=== PATIENT | female | born 1960 | race Caucasian/White ===

== ENCOUNTER 2018-11-22 08:45 | Day surgery (SDC) | payer OTHER ==
[~2018-11-22] VITALS: Ht 172.7 cm; Wt 129.3 kg
--- NOTE | ~2018-11-22 | OR ---
[facility] [address] [place], [place] [address] Draft DATE OF OPERATION: 11/22/2018 SURGEON: Obey Vo MD PREOPERATIVE DIAGNOSES: 1. A 10 x 15 mm right ureteropelvic junction calculus. 2. A 5 mm right lower pole renal calculus. POSTOPERATIVE DIAGNOSES: 1. A 10 x 15 mm right ureteropelvic junction calculus. 2. A 5 mm right lower pole renal calculus. 3. Possible uric acid nephrolithiasis. NAMES OF PROCEDURES: 1. Diagnostic cystoscopy with right retrograde pyelogram. 2. Right flexible nephroscopy with laser lithotripsy and basket extraction of stone fragments. 3. Insertion of right ureteral stent. ANESTHESIA: General. ESTIMATED BLOOD LOSS: Minimal. COMPLICATIONS: None. SPECIMENS: Fragments of right ureteropelvic junction calculus sent to the lab for stone analysis. DRAINS: A 6 x 26 cm double-J ureteral stent inserted into the right ureter. INDICATIONS FOR PROCEDURE: Ms. Ramires is very pleasant 58-year-old obese female with no previous history of nephrolithiasis, who recently presented to my clinic upon referral from the emergency department. She had presented there about a week prior with 1-day history of sudden onset right flank pain and nausea. She underwent a CAT scan, which revealed a 10 x 15 mm right ureteropelvic junction calculus, along with a 5 mm lower pole right renal PATIENT NAME: VINCE RAMIRES OPERATIVE REPORT DATE OF : 64 REPORT #: [id number] PHYSICIAN: OBEY VO MD PCP: PETE BLANCHARD MD REPORT IS CONFIDENTIAL AND NOT TO BE RELEASED WITHOUT AUTHORIZATION [facility] [address] [place], [place] [address] Draft calculus. Also noted on the CAT scan is a 7 mm lower pole left renal calculus. At that time, her urine appeared to be clear of infection. When she was seen in clinic, I sent her urine for culture which revealed 30 K of contamination. The patient was experiencing intermittent right-sided flank pain, but was denying any fevers, chills, or gross hematuria. I explained the risks and benefits of ureteroscopy to her and explained to her that the likelihood of her passing the stone was extremely low and she agreed to undergo diagnostic ureteroscopy. OPERATIVE FINDINGS: 1. On cystoscopy, there was no evidence of any suspicious masses, lesions, or stones. Bilateral ureteral orifices are in their normal anatomic location. 2. Right retrograde pyelogram was performed, which revealed a very large filling defect near her right ureteropelvic junction, consistent with her large right ureteropelvic junction calculus. I was unable to appreciate the filling defect associated with the smaller 5 mm lower pole right renal calculus. There were no other obvious calculi within the right ureter. 3. Right flexible nephroscopy revealed the presence of a very large soft stone in the right renal pelvis. This stone fragmented quite easily using a holmium laser at the 8.8 settings. A 400 micron fiber was used. The fragmentation of the stone produced a significant amount of stone debris and sediment within the right renal pelvis, making it very hard to visualize the stone fragments when it came time to extract them. Overall, majority of the stone was fairly easily fragmented. 4. I was able to extract a few pieces of stone and the stone itself appears to be possibly a uric acid stone. The patient's urinary pH on her visit with me was 5, so this is quite possible, however she denies a history of gout. At this time, I made the decision to abort additional attempts at extracting stone fragments due to lack of visibility. 5. A 6 x 26 cm double-J ureteral stent was inserted into the patient's right ureter under direct visualization with just a mild amount of difficulty. DESCRIPTION OF PROCEDURE: After informed consent was obtained, the patient was taken back to the operating room. She was transferred from the [facility] to the operating room table, where general anesthesia was induced. She was placed in the dorsal lithotomy position and her genitalia prepped and draped in a standard sterile fashion. Using a 30-degree lens on a 22.5-Sammarinese introducer, rigid cystoscope was inserted through urethra into her bladder under direct visualization. Panendoscopic views of the bladder were then obtained. Please see the findings. I turned my attention to the right ureteral orifices, where I performed a right retrograde pyelogram using a cone-tipped catheter. Please see above findings. I then inserted a Sensor wire up into the right renal pelvis under a fluoroscopic guidance. Over the wire, a 13/15 ureteral access sheath was passed rather easily under fluoroscopic guidance. I repeated a retrograde pyelogram via the sheath to PATIENT NAME: VINCE RAMIRES OPERATIVE REPORT DATE OF : 64 REPORT #: [id number] PHYSICIAN: OBEY VO MD PCP: PETE BLANCHARD MD REPORT IS CONFIDENTIAL AND NOT TO BE RELEASED WITHOUT AUTHORIZATION [address] [address] Draft confirm proper placement of the sheath. I then advanced a flexible ureteroscope through the sheath and into the right renal pelvis. I then performed a diagnostic nephroscopy. Please see above findings. There was a very large stone in the right renal pelvis that broke quite easily using a 400 micron fiber and 8.8 holmium laser settings. The active fragmentation stone produced a significant amount of debris within the pelvis, making it difficult to further visualize the stones. From what I could see, I was able to fragment a majority of the stone down to retrievable fragments. I was able to retrieve a couple of these fragments using a Zero Tip basket. However, the visualization was quite poor due to all the stone sediments within the right renal pelvis. I was able to place some fragments into the specimen cup to be sent for stone analysis. After multiple attempts at continuing to try to see these fragments well enough to extract them, I decided to abort the procedure and attempt medical management for what I suspect are uric acid stones. This will be confirmed on stone analysis postoperatively. Through the ureteroscope, I passed a Sensor wire into the right renal pelvis. Over the wire, I passed a 6 x 26 cm double-J ureteral stent into the right collecting system. Placement of the stent was confirmed on fluoroscopy with an adequate proximal coil within the right renal pelvis along with an adequate distal coil in the bladder. The patient's bladder was then drained and the cystoscope was removed. The procedure was then terminated. The patient tolerated the procedure well without any complication. She will now be transferred to the postanesthesia care unit in stable condition. DISPOSITION: I discussed the details of today's procedure with the patient's daughter and answered all of her questions. I told her daughter that the patient will be started on potassium citrate 20 mEq p.o. b.i.d. in an attempt to alkalinize her urine and hopefully to dissolve some of the stones seen in her right renal pelvis as I do suspect that they could be uric acid stones. She was also sent home with oral antibiotics and Percocet 5/325 dispensed #30 as needed for pain. She will be scheduled to return to the operating room in approximately 2 weeks, where she will undergo repeat flexible nephroscopy with laser lithotripsy and extraction of more stone fragments. Hopefully, at that time I will have better visualization once able to flush out her right renal pelvis due to the presence of a stent. As soon as I obtain the results of her stone analysis, she will be notified of this and her potassium citrate will either be continued or discontinued based on those results. MD ADRIANO Watson/STEPHANIE PATIENT NAME: VINCE RAMRIES OPERATIVE REPORT DATE OF : 64 REPORT #: [id number] PHYSICIAN: OBEY VO MD PCP: PETE BLANCHARD MD REPORT IS CONFIDENTIAL AND NOT TO BE RELEASED WITHOUT AUTHORIZATION [facility] [address] [place] [address] [place] [address] Draft /[id number] Copies: ~ PATIENT NAME: VINCE RAMIRES OPERATIVE REPORT DATE OF : 64 REPORT #: [id number] PHYSICIAN: OBEY VO MD PCP: PETE BLANCHARD MD REPORT IS CONFIDENTIAL AND NOT TO BE RELEASED WITHOUT AUTHORIZATION
[~2018-11-22 08:45] MED LIST: FLOMAX0.4 MG PO; GLUCOPHAGE500 MG PO; HYDROCHLOROTH12.5 M1 PO; KAPSPARGO SPRI100 MG PO; NORCO 10-325 T1 EACH PO; ZOFRAN4 MG SL
--- NOTE | 2018-11-22 13:01 | NUR ---
11/22/18 1301 Oralia Garber 1247 PT TO PACU AWAKE AND ALERT DENIES PAIN OR NAUSEA. O2 ON 6L VIA MASK.
--- NOTE | 2018-11-22 13:22 | NUR ---
PT ARRIVES TO DS RM 2 FROM PACU AWAKE, A&O X3. PT RESP EVEN AND UNLABORED, SATS ABOVE 94% ON RA. PT DENIES ANY PAIN OR NAUSEA. PT DAUGHTER AT BEDSIDE. SCD'S IN PLACE. PT PROVIDED ICED WATER AND CRACKERS. CALL LIGHT WITHIN REACH.
--- NOTE | 2018-11-22 14:00 | NUR ---
PT CALL LIGHT ALARMING. PT REQUESTING TO USE BATHROOM. PT TOLERATES AMBULATION WITH STAND BY ASSIST FROM RN. PT ABLE TO VOID 200 ML BLOOD TINGED URINE WITHOUT DIFFICULTY. PT REPORTS BLADDER FEELING EMPTY. PT BACK TO ROOM AND REPORTS 6/10 PAIN IN RIGHT FLANK. PT TOLERATING PO FLUIDS AND FOOD. PT MEDICATED WITH PO PAIN MEDS. SEE EMAR. PT PROVIDED WITH SOUP AND CRACKERS. CALL LIGHT WITHIN REACH
--- NOTE | 2018-11-22 14:15 | NUR ---
EATING LUNCH CONTS TO RATE PAIN 6/10 RX NOT WORKING YET. GIVE MORE TIME.
[2018-11-22] MEDS ORDERED: POTASSIUM CITR15 MEQ PO (14:53)
[2018-11-22] MEDS ORDERED: KEFLEX500 MG PO (14:53)
[2018-11-22] MEDS ORDERED: PERCOCET 5-3251 EACH PO (14:53)
--- NOTE | 2018-11-22 15:00 | NUR ---
PT REPORTS DECREASE IN PAIN LEVEL AND DENIES NAUSEA. VSS. PT RECOMMENDED BY DR. VO TO TAKE BLOOD PRESSURE AND METFORMIN WHEN SHE RETURNS HOME. PT MEETS DC CRITERIA. VOIDS WITHOUT DIFFICULTY, TOLERATES PO FLUIDS, AND FOOD AND DENIES PAIN/NAUSEA. 1510- IV DC'D WNL. DC INSTRUCTIONS WITH PRECAUTIONS PROVIDED TO PT AND DAUGHTER. PT VERBALIZES UNDERSTANDING AND DENIES FURTHER QUESTIONS. PRESCRIPTION GIVEN. PT TO RETURN TO FOR REPEAT SURGERY IN TWO WEEKS. PT TRANSPORTED IN WHEELCHAIR TO VEHICLE IN STABLE CONDITION. VEHICLE DRIVEN BY DAUGHTER.
== END 2018-11-22 15:10 | disposition home or self-care (01) ==
LOC: OPS 08:45 → DS 08:45 → OPS 10:45 → DS 12:10 → OPS 12:10
PROVIDERS: Urology
PROC: 0T768DZ Dilation of Right Ureter with Intraluminal Device, Via Natural or Artificial Opening Endoscopic (ICD-10-PCS; 2018-11-22)
PROC: BT1DZZZ Fluoroscopy of Right Kidney, Ureter and Bladder (ICD-10-PCS; 2018-11-22)
PROC: 0TC08ZZ Extirpation of Matter from Right Kidney, Via Natural or Artificial Opening Endoscopic (ICD-10-PCS; principal; 2018-11-22 10:45)
PROC: 0TC68ZZ Extirpation of Matter from Right Ureter, Via Natural or Artificial Opening Endoscopic (ICD-10-PCS; 2018-11-22 10:45)
DX: N20.2 Calculus of kidney with calculus of ureter (principal); E11.9 Type 2 diabetes mellitus without complications; I10 Essential (primary) hypertension; E66.01 Morbid (severe) obesity due to excess calories; Z79.899 Other long term (current) drug therapy; Z68.43 Body mass index [BMI] 50.0-59.9, adult; Z87.891 Personal history of nicotine dependence
CPT/HCPCS: 00910; 74420; 82365; C1769; C2617; J0696; J1100; J1885; J2250; J2405; J2704; J2765; J3010; J7120; Q9967

== ENCOUNTER 2018-12-06 06:15 | Day surgery (SDC) | payer OTHER ==
[~2018-12-06] VITALS: Ht 172.7 cm; Wt 124.7 kg
--- NOTE | ~2018-12-06 | OR ---
[facility] [address] [place], [place] [address] Draft DATE OF OPERATION: 12/06/2018 SURGEON: Obey Vo MD PREOPERATIVE DIAGNOSES: 1. 15 mm right ureteropelvic junction calculus. 2. 5 mm lower pole right renal calculus. 3. Status post right nephroscopy with laser lithotripsy of both right renal calculi. POSTOPERATIVE DIAGNOSES: 1. 15 mm right ureteropelvic junction calculus. 2. 5 mm lower pole right renal calculus. 3. Status post right nephroscopy with laser lithotripsy of both right renal calculi. PROCEDURES PERFORMED: 1. Diagnostic cystoscopy with right retrograde pyelogram. 2. Right flexible nephroscopy with basket extraction of stones. 3. Right ureteral stent exchange. ANESTHESIA: General. ESTIMATED BLOOD LOSS: Minimal. COMPLICATIONS: None. SPECIMENS: Multiple fragments of right renal calculi sent to the lab for stone analysis. DRAINS: A 6 x 26 cm double-J ureteral stent exchange into the right ureter. INDICATIONS FOR PROCEDURE: Ms Radha thomas is a very pleasant 58-year-old female who presented to my clinic earlier this month after being seen in the emergency department with acute onset of right flank pain. She underwent a CT scan which revealed a 15 mm right ureteropelvic junction calculus, along with a 5 mm lower pole right renal calculus. After discussion of the risks and benefits of the procedure, the patient elected to undergo ureteroscopic PATIENT NAME: VINCE RAMIRES OPERATIVE REPORT DATE OF : 64 REPORT #: [id number] PHYSICIAN: OBEY VO MD PCP: PETE BLANCHARD MD REPORT IS CONFIDENTIAL AND NOT TO BE RELEASED WITHOUT AUTHORIZATION [facility] [address] [place], [place] [address] Draft extraction of her of her right renal calculi. Approximately two weeks ago, she underwent the 1st stage of the procedure where the both stones were fragmented using laser correction using a holmium laser with a 270 micron fiber. She presents today to undergo this 2nd half of her procedure, where the stone burden will now be extracted using a Zero tip basket. FINDINGS: 1. On cystoscopy, there was no evidence of any suspicious masses, lesions, or stones. She does have an indwelling right ureteral stent that has already partially calcified after two weeks of placement correction two weeks after placement. 2. Right retrograde pyelogram reveals a large collections of stone fragments within the lower pole of the right kidney. There are no obvious stone fragments present in the upper mid pole of the right kidney. There is no evidence of calyceal blunting or renal pelvis dilation. 3. Flexible nephroscopy was performed and a ZeroTip basket was used to remove the multiple stone fragments within the lower pole of the right kidney. Overall, approximately 98% of the stone burden was successfully removed. The root was successfully removed years using the Zero tip basket. 4. A fresh 6 x 26 cm double-J ureteral stent was exchanged into the right ureter without difficulty. DESCRIPTION OF PROCEDURE: After informed consent was obtained, the patient was taken back to the operating room. She was transferred from the [facility] to the operating room table, where general anesthesia was induced. She was placed in the dorsal lithotomy position and her genitalia were prepped and draped in a sterile fashion. Using a 30-degree lens on a 22-1/2-[place] Korean introducer, rigid cystoscope was inserted through urethra and into her bladder under direct visualization. Panendoscopic views of the bladder were then obtained. Please see above findings. The indwelling stent was noted to be calcified as mentioned above. The stent was pulled to the level of the urethral meatus using a grasper. A Sensor wire was then inserted into the lumen of the stent and up into the right renal pelvis. Fluoroscopy confirmed adequate placement of the wire in the upper pole of the right kidney. The indwelling stent was removed fully intact. Over the wire, a 13/15 ureteral access sheath was passed into the right collecting system under fluoroscopic guidance. The sheath passed quite easily up into the right ureter. I then performed a right retrograde pyelogram via the sheath to confirm placement and to assess the patient's stone burden. Please see above findings. I then removed the inner obturator of the sheath and inserted the flexible ureteroscope through the sheath and into the right renal pelvis. A diagnostic right nephroscopy was then performed. I visualized a rather large pile of stone fragments in the lower pole of the right kidney. These stones were successfully extracted using a Zero tip basket. PATIENT NAME: VINCE RAMIRES OPERATIVE REPORT DATE OF : 64 REPORT #: [id number] PHYSICIAN: OBEY VO MD PCP: PETE BLANCHARD MD REPORT IS CONFIDENTIAL AND NOT TO BE RELEASED WITHOUT AUTHORIZATION [facility] [address] [place], [place] [address] Draft There was no additional lithotripsy required during today's procedure. Overall, approximately 98% of the stone burden was successfully retrieved using the stone basket. I repeated a retrograde pyelogram which confirmed clearance of the stone fragments from the lower pole of the right kidney. I also evaluated the other mid and upper poles of the kidney and they appeared to be free of stone fragments. Once I was satisfied that all the stone fragments had been successfully retrieved, the ureteroscope was then removed from the right collecting system. I passed a Sensor wire through the ureteral access sheath and up into the right renal pelvis. The ureteral access sheath was then removed fully intact. Over the Sensor wire, I passed a 6 x 26 double-J ureteral stent into the right collecting system. The stent passed quite easily, and once I pulled the wire, an adequate proximal coil was seen in the upper pole of the right kidney. There was also an adequate distal coil within the bladder. The patient's bladder was then drained and the cystoscope was removed. The procedure was then terminated. The patient tolerated the procedure well without any complication. She will now be transferred to the postanesthesia care unit in stable condition. DISPOSITION: I discussed the details of today's procedure with the patient's daughter and answered all of her questions. The patient will be discharged to home later today when she awakes from general anesthesia. She was given additional prescription for Percocet 5/325 one to two tablets p.o. q.8 hours p.r.n. pain, dispense #30, along with Keflex 500 mg p.o. t.i.d. for a total of 5 days. She will be scheduled to return to clinic on , December 16 at 9 a.m. to undergo cystoscopy with right ureteral stent extraction. At that time, I will also discuss with her the results of her stone analysis. In the interim, I have told her to continue her potassium citrate in case there was any element of uric acid nephrolithiasis. MD ADRIANO Watson/STEPHANIE /[id number] Copies: PATIENT NAME: VINCE RAMIRES OPERATIVE REPORT DATE OF : 64 REPORT #: [id number] PHYSICIAN: OBEY VO MD PCP: PETE BLANCHARD MD REPORT IS CONFIDENTIAL AND NOT TO BE RELEASED WITHOUT AUTHORIZATION [address] [address] Draft ~ PATIENT NAME: VINCE RAMIRES OPERATIVE REPORT DATE OF : 64 REPORT #: [id number] PHYSICIAN: OBEY VO MD PCP: PETE BLANCHARD MD REPORT IS CONFIDENTIAL AND NOT TO BE RELEASED WITHOUT AUTHORIZATION
[~2018-12-06 06:15] MED LIST changes: +KEFLEX500 MG PO; +PERCOCET 5-3251 EACH PO; +POTASSIUM CITR15 MEQ PO
--- NOTE | 2018-12-06 07:12 | NUR ---
PT'S BLOOD SUGAR 274 AT 0645 DURING PRE-OP. DIANA KAUR NOTIFIED OF THIS LEVEL AND NO NEW ORDERS GIVEN AT THIS TIME.
--- NOTE | 2018-12-06 08:25 | NUR ---
PT ALERT, ORIENTED AND SEEMS TO BE RELAXED. PT MENTIONED THAT SHE JUST HAD PROCEDURE 2 WKS AGO. PLEASANT, THANKED ME FOR COMING IN-EXTENDED A BLESSING, WILL FOLLOW NEEDED
--- NOTE | 2018-12-06 10:29 | NUR ---
12/06/18 1029 Shahrzad Floyd 1020 PT ARRIVED IN PACU SLEEPY WITH ORAL AIRWAY IN PLACE. 1023 BLOOD SUGAR 252 ON ARRIVAL. 1025 ORAL AIRWAY REMOVED. OXYGEN DECREASED TO 6L VIA MASK WITH SATS 98%.
--- NOTE | 2018-12-06 11:01 | NUR ---
PT RETURNS TO DS ROOM 3 FROM PACU ON RA. PT AWAKE AND ORIENTED. PT DENIES PAIN/NAUSEA. VSS. PACU REPORTS DECREASE IN PT'S BLOOD SURGAR TO 250. PT DRINKS WATER AND TOLERATES AND DENIES NEED FOR FOOD AT THIS TIME AND REQUESTS TO REST. CALL LIGHT WITHIN REACH. DAUGHTER AT BEDSIDE.
--- NOTE | 2018-12-06 12:00 | NUR ---
PT REQUESTS TO USE BATHROOM TO VOID. PT DANGLES AT BEDSIDE AND DENIES NAUSEA/LIGHTHEADEDNESS. PT AMBULATES WITH STAND BY ASSIST FROM THIS RN. PT ABLE TO VOID 300 ML BLOOD TINGED URINE WITHOUT DIFFICULTY. PT DENIES BLADDER FULLNESS FEELING. PT BACK TO BED. IV DC'D WNL. PT DRESSES SELF WITHOUT ASSISTANCE
--- NOTE | 2018-12-06 12:15 | NUR ---
DC INSTRUCTIONS WITH PRECAUTIONS PROVIDED TO PT. PT VERBALIZES UNDERSTANDING AND DENIES FURTHER QUESTIONS. PRESCRIPTION GIVEN WITH EDUCATION. VSS. PT TRANSPORTED IN WHEELCHAIR TO VEHICLE DRIVEN BY DAUGHTER. PT IN STBALE CONDITION AND TO FOLLOW UP WITH DR. VO IN TWO WEEKS FOR STENT REMOVAL.
== END 2018-12-06 12:15 | disposition home or self-care (01) ==
LOC: DS 06:15 → OPS 06:15 → DS 09:00 → OPS 09:00
PROVIDERS: Urology
PROC: 0T768DZ Dilation of Right Ureter with Intraluminal Device, Via Natural or Artificial Opening Endoscopic (ICD-10-PCS; 2018-12-06)
PROC: BT1DYZZ Fluoroscopy of Right Kidney, Ureter and Bladder using Other Contrast (ICD-10-PCS; 2018-12-06)
PROC: 0TC08ZZ Extirpation of Matter from Right Kidney, Via Natural or Artificial Opening Endoscopic (ICD-10-PCS; principal; 2018-12-06 09:00)
PROC: 0TP98DZ Removal of Intraluminal Device from Ureter, Via Natural or Artificial Opening Endoscopic (ICD-10-PCS; 2018-12-06 09:00)
DX: N20.2 Calculus of kidney with calculus of ureter (principal); I10 Essential (primary) hypertension; E11.9 Type 2 diabetes mellitus without complications; Z79.899 Other long term (current) drug therapy; Z79.84 Long term (current) use of oral hypoglycemic drugs; Z87.891 Personal history of nicotine dependence
CPT/HCPCS: 00918; 74420; 82365; C1769; C2617; J0696; J1100; J1885; J2704; J3010; J7120; Q9967

== ENCOUNTER 2018-12-20 09:53 | Emergency (ER) | payer SELFPAY ==
[~2018-12-20] VITALS: Ht 172.7 cm; Wt 124.7 kg
--- OUTSIDE RECORDS SUMMARY | 2018-12-20 09:56 | XMS ---
PreManage Notification: VINCE RAMIRES Security Guest Experience Representative Events No recent Security Events currently on file [facility] There are no care providers on record at this time. Courtney has no Care Guidelines for this patient. Kristi VISIT COUNT (12 MO.) 2 [facility] Smith TOTAL 2 NOTE: Visits indicate total known visits. ED/UCC VISIT TRACKING (12 MO.) 12/20/2018 09:53 WIL[facility]ERT Ji [place] TYPE: Emergency COMPLAINT: - KIDNEY ISSUES PER MD 11/12/2018 11:23 [facility] [place] TYPE: Emergency COMPLAINT: - R SIDED FLANK/ABD PAIN DIAGNOSES: - Unspecified abdominal pain - Hydronephrosis with ureteropelvic junction obstruction INPATIENT VISIT TRACKING (12 MO.) No inpatient visits to display in this time frame [email or web address]
[2018-12-20] MEDS ORDERED: LEVOFLOXACIN750 MG PO (10:13)
[2018-12-20] MEDS ORDERED: SERTRALINE HCL50 MG PO (10:14)
[2018-12-20] MEDS ORDERED: LANTUS100 UNITS/ SUB-Q (12:55)
[2018-12-20] MEDS ORDERED: DIFLUCAN200 MG PO (12:55)
== END 2018-12-20 13:09 | disposition home or self-care (01) ==
LOC: ED 09:53
DX: N28.9 Disorder of kidney and ureter, unspecified (principal); E11.65 Type 2 diabetes mellitus with hyperglycemia; B37.9 Candidiasis, unspecified; I10 Essential (primary) hypertension; Z87.891 Personal history of nicotine dependence; Z79.899 Other long term (current) drug therapy; Z79.84 Long term (current) use of oral hypoglycemic drugs
CPT/HCPCS: 80053; 81001; 85025; 96374; 99283-25; J2405; J7040

== ENCOUNTER 2023-03-19 08:55 | Day surgery (SDC) | payer BC ==
[2023-03-16 16:21] VITALS: BP 128/71
[~2023-03-19] VITALS: Ht 172.7 cm; Wt 131.8 kg
[~2023-03-19 08:55] MED LIST changes: +ALLER-TEC10 MG PO; +COZAAR50 MG PO; +DIFLUCAN200 MG PO; +GLIPIZIDE ER10 MG PO; -KAPSPARGO SPRI100 MG PO; +LANTUS100 UNITS/ SUB-Q; +LEVOFLOXACIN750 MG PO; +LIPITOR40 MG PO; +METOPROLOL SUC100 MG PO; +SERTRALINE HCL50 MG PO; +ZOLOFT50 MG PO
[2023-03-19 09:11] VITALS: BP 149/73
[2023-03-19] MEDS ORDERED: ASPIRIN REGIMEN81 MG PO (09:14)
--- NOTE | 2023-03-19 09:52 | NUR ---
0940- ENRRIQUE DALY CRNA NOTIFIED OF PT'S BLOOD SUGAR BEING 330 TODAY. NEW ORDERS RECEIVED. 0926- DALTON MEYER, CERTIFIED FITTER IN MASTECTOMY INTO THE ROOM TO TALK WITH THE PT.
--- NOTE | 2023-03-19 10:08 | NUR ---
REALIZED THE PT'S IV WAS STARTED ON THE OPERATIVE SIDE. PT NOTIFIED OF THIS AND NEEDING TO START A NEW IV ON THE NON-OPERATIVE SIDE. APOLOGIZED TO PT. PT WAS PLEASANT ABOUT THE ACCIDENTAL INSERTION ON THE OPERATIVE SIDE.
--- NOTE | 2023-03-19 10:18 | NUR ---
PT SALINE LOCKED AND GOING WITH IMAGING VIA WHEELCHAIR.
--- NOTE | 2023-03-19 11:04 | NUR ---
DR. DODGE AT THE BEDSIDE TO EXAMINE AND DEANNE. THIS RN IN ROOM PILE DRIVING TECHNICIAN.
--- NOTE | 2023-03-19 13:36 | NUR ---
03/19/23 1336 Elida Frey 1310- PT ARRIVES TO PACU, IN SEMI [place] POSITION ON ROOM AIR. O2 SATS 78% ON ROOM AIR, PT IS REACTIVE. O2 PLACED VIA MASK AT 6L, SATS UP TO 85-87%. INCREASED O2 TO 10 L PER MASK, SATS UP TO MID 90'S. ALL MONITORS APPLIED. PT OPENS EYES, LR INFUSING TO LEFT WRIST. DRESSINGS IN PLACE TO RIGHT BREAST, WITH ANA LILIA DRAIN. WILL CONTINUE TO MONITOR. PT SAT UP HIGHER AND REPOSITIONED DUE TO SNORING. PT BREATHS EVEN WITH A PROLONGED EXPIRATORY PHASE. CBG 258. 1315- PT SATS REMAIN STABLE IN THE UPPER 90'S ON 10L PER MASK. PT IS RESTING BUT RESPONSIVE TO VERBAL STIMULI. 1320- PT WAKES OCCASIONALLY TO SCRATCH AT FACE AROUND O2 MASK. PT HAS NO COMPLAINTS. 1335- PT O2 TURNED DOWN TO 6L AT THIS TIME, REMAINS BY MASK. WILL CONTINUE TO MONITOR. 1 LITER LR COMPLETE.
[2023-03-19] MEDS ORDERED: MOTRIN IB200 MG PO (13:47)
[2023-03-19] MEDS ORDERED: PERCOCET 7.5-31 EACH PO (13:47)
[2023-03-19] MEDS ORDERED: TYLENOL EXTRA500 MG PO (13:48)
[2023-03-19 14:11] VITALS: BP 114/41
--- NOTE | 2023-03-19 14:27 | NUR ---
PT ARRIVES BACK TO DAY SURGERY ROOM #4. PT ENCOURAGED TO TAKE DEEP BREATHS. OXYGEN SAT HIGH 90'S ON 2L VIA NC. PT PROVIDED CRACKERS AND WATER PER HER REQUEST AND FOR PAIN PILL ADMINISTRATION. PT HAS NO FURTHER REQUESTS AT THIS TIME. CALL LIGHT PROVIDED TO PT. BED IN THE LOWEST POSITION, BED RAIL UP X1.
--- NOTE | 2023-03-19 15:04 | NUR ---
OXYGEN TITRATED OFF. PT PLACED ON CONTINUOUS PULSE OX. OXYGEN SAT HIGH 90'S CURRENTLY. PT'S DAUGHTER AT THE BEDSIDE. DAUGHTER HANDED THE PRESCRIPTION TO GIVE TO HER FAMILY MEMBER TO TAKE TO THE PHARMACY TO BE FILLED.
[2023-03-19 15:26] VITALS: BP 124/67
--- NOTE | 2023-03-19 15:40 | NUR ---
PT UP ON THE EDGE OF THE BED. DENIES DIZZINESS AND NAUSEA. PT REPORTS INCREASED PAIN TO THE RIGHT BREAST RATING IT A 7/10. PT ASKING FOR MORE PAIN MEDICATION. DR. DODGE NOTIFIED OF THE PAIN AND NEW ORDERS RECEIVED. PT ABLE TO AMBULATE BACK TO BED.
--- NOTE | 2023-03-19 15:59 | NUR ---
ANA LILIA EDUCATION PROVIDED TO PT AND PT'S DAUGHTER. ALL QUESTIONS ANSWERED. EDUCATION PACKET FOR ANA LILIA CARE PROVIDED TO TAKE HOME WELL.
--- NOTE | 2023-03-19 16:07 | NUR ---
ASSISTED WITH PT GETTING HER SUPPORTIVE BRA/ TANK TOP ON. PT REPORTS THIS HELPS WITH HER PAIN. ANA LILIA DRAIN PLACED TO POUCH. PT SITTING UP ON THE EDGE OF THE BED. PT DRESSED AND WAITING TIME AFTER PAIN MEDICATION ADMINISTRATION.
[2023-03-19 16:34] VITALS: BP 105/55
--- NOTE | 2023-03-19 16:37 | NUR ---
DC INSTRUCTIONS PROVIDED TO PT AND PT'S DAUGHTER. ALL QUESTIONS ANSWERED. PT REPORTS SHE IS FEELING "MUCH BETTER" AND IS WANTING TO GO HOME. PT'S DAUGHTER IS STAYING WITH THE PT FOR THE NEXT WEEK TO ASSIST HER. PT TAKEN VIA WHEELCHAIR TO THE FRONT OF THE HOSPITAL AND ASSISTED INTO THE FRONT OF HER SISTER'S CAR.
--- NOTE | 2023-03-22 14:35 | OR ---
[facility] [address] [place], [place] [address] Signed DATE OF OPERATION: 03/19/2023 SURGEON: Deyanira Dodge MD PREOPERATIVE DIAGNOSES: 1. 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 2. Obesity. 3. Diabetes. POSTOPERATIVE DIAGNOSES: 1. 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 2. Obesity. 3. Diabetes. PROCEDURE: 1. Injection of methylene blue for sentinel lymph node identification. 2. Right deep axillary sentinel lymph node biopsy x2. 3. Right wide upper outer quadrant quadrantectomy with additional resection in the inferolateral aspect. 4. Oncoplastic closure of right breast (breast pedicle advancement, additional skin excision and closure). ANESTHESIA: General LMA, Rafael Mohan, [employer] and local 10 mL of 0.25% Marcaine with epinephrine. INDICATION: This 62-year-old morbidly obese white woman with poorly controlled diabetes who is a patient of Dr. Fernando. She had a mammogram and ultrasound on February 09, 2023 including an ultrasound-guided core biopsy of a retroareolar right breast mass at the 10 o'clock position and another lesion 3 cm from the areolar margin also in the same position. Both showed carcinoma in situ with solid and cribriform features considered intermediate grade 2 and without calcifications. Additional findings included intraductal papilloma. ER receptors were positive, [place] positive as well. The patient knew of no palpable mass prior to the biopsy, though she had not had any clinical examination in recent times. She does have family history of breast cancer in two maternal aunts. She has no pain, nipple discharge, or other symptoms related to the breast. The patient is undergoing evolving treatment for diabetes mellitus, anticipating Ozempic use, but not yet on insulin or other measures for her diabetes control. Electronically Signed By: DEYANIRA DODGE MD 03/22/23 1435 PATIENT NAME: VINCE RAMIRES OPERATIVE REPORT DATE OF : 64 REPORT #: [id number] PHYSICIAN: DEYANIRA DODGE MD PCP: PETE FERNANDO MD REPORT IS CONFIDENTIAL AND NOT TO BE RELEASED WITHOUT AUTHORIZATION [facility] [address] [place], [place] [address] Signed She and I have reviewed her options of management including total mastectomy with possible sentinel lymph node biopsy versus sentinel lymph node biopsy and quadrantectomy and postoperative radiation therapy. She is flexible as to the approach and wishes to proceed with breast conservation if possible. She understands the risk of operation including, but not limited to bleeding, infection, cosmetic deformity, despite efforts to mitigate that given the extent of resection required. She also understands a positive margin may ultimately necessitate mastectomy. Understanding that she wished to proceed. FINDINGS: Persistent palpable abnormality was noted in the 10 o'clock position in relation to the nipple in the upper outer quadrant. Notably her breast is broad and flat despite her obesity. Wide resection was undertaken including overlying skin at the 10 o'clock position. Dissection was carried to the pectoralis fascia and wide resection undertaken including some portion beneath the nipple itself. Palpation in the lower outer aspect did reveal nodular changes for which additional dissection was undertaken now with a clinically negative margin. The resultant quadrantectomy defect was sizable and on that basis oncoplastic closure was required. Pedicle advancement from the superior medial and inferior aspects was undertaken filling in the defect quite well. Closure of the skin did require additional skin resection. As regard to the axilla, good uptake of dye into the axillary lymph nodes as well as radionuclide demonstrated at least two and possibly three sentinel lymph nodes. They were clinically benign, other slightly enlarged. DESCRIPTION OF PROCEDURE: The patient was received from the radiology suite, having undergone radionuclide injection for sentinel lymph node identification. Examination of the breast showed a palpable abnormality approximately 3 cm from the areolar margin as well as beneath the areola itself in the upper outer aspect. She underwent general endotracheal anesthesia. Ancef preoperatively was given as was heparin subcutaneously administered and sequential compression device stocking used. The right upper arm axilla and breast were prepared with a chlorhexidine solution and draped sterilely. This was after injection of 1 mL of methylene blue dye in the subepithelial aspect of the upper outer quadrant of the breast near the areolar margin. The palpable area was defined and the two areas to be in excised in continuity were well identified. This was on the edge of the areola as well as a few centimeters from it in the upper outer aspect at the 10 o'clock position. Electronically Signed By: DEYANIRA DODGE MD 03/22/23 1435 PATIENT NAME: VINCE RAMIRES OPERATIVE REPORT DATE OF : 64 REPORT #: [id number] PHYSICIAN: DEYANIRA DODGE MD PCP: PETE FERNANDO MD REPORT IS CONFIDENTIAL AND NOT TO BE RELEASED WITHOUT AUTHORIZATION [facility] [address] [place] [id number] Signed Attention was first turned towards axilla. Using the C-Trak gamma probe with a sterile cover, the area of maximal uptake in the axilla was identified. A small transverse incision was made there and dissection carried through the dermis sharply and with electrocautery as well. Using blunt and electrocautery dissection, care was taken to dissect into the depths of the axilla, ultimately entering the axillary fat tissue. The C-Trak probe was used to guide dissection more fully into the depths of the axilla. Ultimately, a 1.5 to 2 cm lymph node was identified that had good uptake of methylene blue dye and multiple lymphatic channels leading to it. Two other small lymph nodes were association with it. This was dissected free from the subcutaneous tissue with all due care and clips were applied to the area as well. A generous bleeding vessel was secured with clips as well. The axillary tissue was passed for permanent pathology. Additional interrogation of the axilla showed no other blue lymph nodes nor much radiotracer uptake. Hemostasis was assured and the axilla was packed with laparotomy pack. Attention was turned towards the primary lesion of the breast. The palpable area of abnormality in the 10 o'clock position was well identified. A marker was used to jenn the areolar margin at the 10 o'clock position and a wide segment of anticipated skin to be resected in continuity in the quadrantectomy outlined as well. Dissection was carried through the dermis sharply and ultimately with electrocautery. Dissection was carried through the parenchyma of the breast directly to the pectoralis fascia in all areas. The tissue beneath the areola itself was resected of course as well. Palpable abnormalities were maintained in position during the course of the dissection. After resection, hemostasis was assured with clips and electrocautery as appropriate. Irrigation was undertaken with sterile water for its tumor-lytic effect. Palpation in the inferolateral aspect revealed some draining nodularity, on the possibly this represented additional DCIS, it too was resected with a clinically negative margin and appropriately labeled with sutures for orientation. The defect in the upper outer quadrant was significant. A oncoplastic closure would be necessary for acceptable cosmesis. The superior breast pedicle was freed from the underlying pectoralis with blunt electrocautery dissection mobilizing it quite well. The inferior and central pedicle was similarly mobilized. It is recalled the patient has a rather small breasts in aggregate that were broad and flat in relation to her overall obesity. Through a right inframammary stab incision, a 7 mm flat Romeo drain was insinuated first into the axillary cavity and then into the pectoral space as the resections were quite close together anyway. The base of the mobilized breast pedicles were secured with Electronically Signed By: DEYANIRA DODGE MD 03/22/23 1435 PATIENT NAME: VINCE RAMIRES OPERATIVE REPORT DATE OF : 64 REPORT #: [id number] PHYSICIAN: DEYANIRA DODGE MD PCP: PETE FERNANDO MD REPORT IS CONFIDENTIAL AND NOT TO BE RELEASED WITHOUT AUTHORIZATION [facility] [address] [place], [place] [address] Signed interrupted 2-0 Vicryl. Additional parenchymal reapproximation was undertaken more superficially. Redundant skin in the region of the areola was excised to allow for cosmetic closure. Interrupted 2-0 Vicryl was used for the deep dermis. The skin was closed around the areola with a running 4-0 nylon suture and similarly the incision of breast parenchyma in the upper outer aspect. Good cosmesis was noted at conclusion. Photographs were taken. The axillary wound was then closed with interrupted 2-0 Vicryl and a running subcuticular 3-0 Vicryl for the skin. Steri-Strips were applied there. Acticoat dressing was applied to the both of the incision areas. The patient was ultimately extubated and transferred to recovery room in good condition having suffered no complication. Sponge, needle, and counts reported as correct x3. Deyanira Dodge MD /HONEYL /[id number] cc: Pete Fernando MD Copies: PETE FERNANDO MD ~ Electronically Signed By: DEYANIRA DODGE MD 03/22/23 1435 PATIENT NAME: VINCE RAMIRES OPERATIVE REPORT DATE OF : 64 REPORT #: [id number] PHYSICIAN: DEYANIRA DODGE MD PCP: PETE FERNANDO MD REPORT IS CONFIDENTIAL AND NOT TO BE RELEASED WITHOUT AUTHORIZATION
--- NOTE | 2023-03-25 16:03 | PATH ---
[facility] [address] [place], [place] [address] Signed SPECIMEN(S): A RIGHT AXILLARY LYMPH NODES SPECIMEN(S): B RIGHT BREAST UPPER OUTER QUADRANT SPECIMEN(S): C RIGHT ADDITIONAL BREAST SPECIMEN SOURCE: A. RIGHT AXILLARY LYMPH NODES B. RIGHT BREAST UPPER OUTER QUADRANT C. RIGHT ADDITIONAL BREAST CLINICAL HISTORY: Pre: R sided ductal carcinoma in situ. Specimen Time to Fixation- 03/19/2023 12:12:00 PM FINAL PATHOLOGIC DIAGNOSIS: A. Right axillary lymph nodes: - Two lymph nodes, negative for metastatic carcinoma (0/2). B. Right breast upper outer quadrant: - Ductal carcinoma in situ with the following features: - Specimen / tumor site: Upper outer quadrant. - Procedure: Lumpectomy. - Laterality: Right breast. - Histologic type: Ductal carcinoma in situ. - Size of DCIS: DCIS spans approximately 3 cm (including specimen B and C). - Architectural pattern: Solid and cribriform-type. - Nuclear grade: Intermediate grade. - Necrosis: Present. - Margin status for DCIS: - DCIS extends to within 0.6 mm of the nearest blue-inked margin of specimen C (corresponding to the single stranded suture identifying new margin). - DCIS is 0.8 mm from the nearest green-inked margin of specimen C (corresponding to the double-stranded suture designated original margin). - DCIS is 1 mm to the green inked margin in specimen B (designated inferior in specimen B). - DCIS is 4 mm from the black inked margin of specimen C (corresponding to the area not designated with a suture). - Regional lymph nodes: - Two lymph nodes, negative for metastatic carcinoma (0/2). - Number of lymph nodes with macrometastasis, micrometastasis, or isolated tumor cells: 0. PATIENT NAME: VINCE RAMIRES PATHOLOGY DATE OF : 64 REPORT #: [id number] PHYSICIAN: [facility] PCP: PETE BLANCHARD MD REPORT IS CONFIDENTIAL AND NOT TO BE RELEASED WITHOUT AUTHORIZATION [facility] [address] [place], [place] [address] Signed - Distant metastasis: No applicable. - Additional findings: Sclerotic fibroadenomatoid change, biopsy site changes. - Special studies: ER, NV, and HER2 studies will be repeated on the invasive component and reported in an addendum. - Pathologic stage classification: pTis, pN0, pMX. C. Right additional breast tissue, lower outer quadrant: - Additional ductal carcinoma in situ (see characteristics in synoptic report for B). As part of [facility]' Quality Improvement Program, this case was reviewed by another member of our pathology staff. JVR::[facility] MICROSCOPIC EXAMINATION: Histologic sections of all submitted blocks are examined by light microscopy. These findings, together with the gross examination, support the pathologic diagnosis. Immunostains are performed with appropriate controls and show the following: Block (B5): - P63: Patchy positive in area of concern. - Smooth Muscle Myosin: Patchy positive in area of concern. Block (C4): - P63: Patchy positive in area of concern. - Smooth Muscle Myosin: Positive in area of concern. JVR:[facility] GROSS DESCRIPTION: A. The specimen, labeled and designated "Jennifer Ramires, " and designated on the requisition "axillary lymph nodes," is received in formalin and consists of 4.5 x 4.0 x 2.0 cm portion of yellow-funes adipose tissue that upon dissection reveals two possible lymph nodes that measure 2.7 and 3.6 cm in greatest dimension. The lymph nodes are entirely submitted for histologic examination. Only adipose tissue remains within the container. Cassette Summary: (A1-A2) one possible lymph node, sectioned (A3-A6) one possible lymph node, sectioned B. The specimen, labeled and designated "Jennifer Ramires " and designated on the requisition "right upper outer quadrant breast," is received in formalin and consists of 196 gram oriented portion of yellow-funes fibroadipose tissue that is 11.4 x 8.5 x 4.7 cm with an attached PATIENT NAME: VINCE RAMIRES PATHOLOGY DATE OF : 64 REPORT #: [id number] PHYSICIAN: JENNIFER LOMBARDI PCP: PETE BLANCHARD MD REPORT IS CONFIDENTIAL AND NOT TO BE RELEASED WITHOUT AUTHORIZATION [facility] [address] [place], [place] [address] Signed portion of skin that is 7.3 x 3.2 cm. The skin surface is pale pink and wrinkled with a blue dye discoloration. A short suture is present and identifies the superior margin, a long suture identifies the lateral margin, and a double suture identifies the subareolar area. The specimen is inked as follows: superior - blue; inferior - green; medial - red; lateral - orange; anterior - yellow; and posterior - black. The specimen is serially sectioned from medial to lateral into 12 slices revealing a 4.3 x 2.4 x 1.0 cm pink-white firm ill-defined, partially cystic mass with one hemorrhagic possible biopsy cavity present in slices 4-9. The mass is 0.2 cm from the subareolar area identified with double sutures, 1.6 cm from the anterior skin, 1.4 cm from the anterior soft tissue margin, 2.4 cm from the posterior soft tissue margin, 5.8 cm from the superior soft tissue margin, 0.2 cm from the inferior soft tissue margin, 3.9 cm from the medial soft tissue margin, and 1.8 cm from the lateral soft tissue margin. The mass contains a twisted biopsy cavity clip in slice five. Approximately 90% of the remaining specimen is a yellow-funes greasy adipose tissue and 10% is a white-funes delicate fibrous tissue. Car Painter sections are submitted in 11 cassettes. Cassette Summary: (B1) slice one, medial soft tissue resection margin, perpendicular (B2) fibroadipose tissue medial to mass, slice four (B3-B4) mass to subareolar area, slice five (B5-B6) mass into the inferior soft tissue resection margin, slice seven (B7) fibroadipose tissue lateral to mass, slice 11 (B8) posterior soft tissue resection margin, perpendicular (B9) anterior soft tissue resection margin and skin, perpendicular (B10) superior soft tissue resection margin, perpendicular (B11) slice 12, lateral soft tissue resection margin, perpendicular C. The specimen, labeled and designated "Jozef Jennifer, " and designated on the requisition "right additional breast tissue lower outer quadrant," is received in formalin and consists of 25 g oriented portion of yellow-funes fibroadipose tissue that is 7.2 x 4.5 x 2.6 m. A single suture identifies the new margin and is inked blue. A double suture identifies the original margin and is inked green. The remainder of the specimen is inked black. The tissue is serially sectioned perpendicular to the long axis into 13 slices revealing a 1.6 x 0.9 x 0.7 cm pink-white firm nodule present in slices 7-9, and that abuts the blue inked new margin. The slices surrounding this PATIENT NAME: VINCE RAMIRES PATHOLOGY DATE OF : 64 REPORT #: [id number] PHYSICIAN: JENNIFER LOMBARDI PCP: PETE BLANCHARD MD REPORT IS CONFIDENTIAL AND NOT TO BE RELEASED WITHOUT AUTHORIZATION [facility] [address] [place], [place] [address] Signed nodule are entirely submitted for histologic examination. Approximately 90% of the tissue is yellow-funes greasy adipose tissue and 10% funes-pink delicate fibrous tissue. Cassette Summary: (C1-C2) slice six (C3-C4) slice seven (C5-C6) slice eight (C7-C8) slice nine (C9-C10) slice 10 Cold ischemia time: 10 minutes Approximate Formalin time: 34 hours and 30 minutes. FB (under the direct supervision of a pathologist) The Gross Description was prepared using a voice recognition system. The report was reviewed for accuracy; however, sound-alike word errors, addition and/or deletions may occur. If there is any question about this report, please contact Client Services. PERFORMING LABORATORY: Technical component was performed by [facility], [address] [place] [id number] (CLIA# [id number]). Professional interpretation was performed by [facility], [address] [place] [id number] (CLIA#: [id number]). Diagnostician: Micky Arredondo MD Pathologist Electronically Signed 03/25/2023 Copies: ~ PATIENT NAME: VINCE RAMIRES PATHOLOGY DATE OF : 64 REPORT #: [id number] PHYSICIAN: JENNIFER PATHOLOGY PCP: PETE BLANCHARD MD REPORT IS CONFIDENTIAL AND NOT TO BE RELEASED WITHOUT AUTHORIZATION
== END 2023-03-19 16:37 | disposition home or self-care (01) ==
LOC: MAM 08:55 → DS 08:55 → MAM 10:00 → EDSTATUS 10:00 → MAM 10:30 → NUC 11:00 → MAM 16:37
PROVIDERS: ATTEND Surgery
PROC: 0HBT0ZZ Excision of Right Breast, Open Approach (ICD-10-PCS; principal; 2023-03-19 10:30)
PROC: 07B50ZZ Excision of Right Axillary Lymphatic, Open Approach (ICD-10-PCS; 2023-03-19 10:30)
DX: D05.11 Intraductal carcinoma in situ of right breast (principal); I10 Essential (primary) hypertension; E11.9 Type 2 diabetes mellitus without complications; E78.5 Hyperlipidemia, unspecified; E66.9 Obesity, unspecified; Z68.41 Body mass index [BMI] 40.0-44.9, adult
CPT/HCPCS: 00400; 78195; A9270; A9541; J0131; J0690; J0780; J1170; J1644; J1815; J2001; J2371; J2405; J2704; J3475; J7121; Q9968